=== PATIENT | male | born 1990 | race Two or more races ===

== ENCOUNTER 2019-12-05 14:24 | Emergency (ER) | payer OTHER ==
[~2019-12-05] VITALS: Ht 180.3 cm; Wt 95.0 kg
[~2019-12-05 14:24] MED LIST: CEPH-264 PO; DOCU-109 PO; HYDR-3164 PO
[2019-12-05 14:38] VITALS: BP 146/92
--- NOTE | 2019-12-05 15:38 | RAD ---
CHEST AP ONLY INDICATION: cough 19 COMPARISON STUDY: None. FINDINGS: Lungs: Normal lung volume. No focal airspace disease. Normal pulmonary vasculature. Pleura: No pleural effusion or pneumothorax. Heart and Mediastinum: Normal cardiomediastinal silhouette and great vessels. IMPRESSION: No acute cardiopulmonary process. Electronically signed by: Hawk Malagon MD (12/05/2019 3:35 PM) [id number]
--- NOTE | 2019-12-05 15:58 | PHYS DOC ---
Past Medical History Past Medical History: Asthma Past Surgical History: Tonsillectomy, Other Additional Past Surgical Histo: L wrist, colonoscopy Smoking Status: Current Every Day Smoker Alcohol Use: Occasionally Drug Use: None General Adult EDM: Chief Complaint: COUGH HPI: HPI: Patient is a 29 year old male with history of asthma, current smoker, who presents to the ED today complaining of cough that began yesterday and loss of appetite and tests that began today. Patient reports being around a friend who has COVID19. He also reports residing in a home with a family member that is currently on current time after being exposed to COVID19. Reports chills, denies fever. Review of Systems: Review of Systems: Constitutional: Denies fever or chills. [] Eyes: Denies change in visual acuity. [] HENT: Denies nasal congestion or sore throat. [] Respiratory: Denies cough or shortness of breath. [] Cardiovascular: Denies chest pain or edema. [] GI: Denies abdominal pain, nausea, vomiting, bloody stools or diarrhea. [] : Denies dysuria. [] Musculoskeletal: Denies back pain or joint pain. [] Integument: Denies rash. [] Neurologic: Denies headache, focal weakness or sensory changes. [] Psychiatric: Denies depression or anxiety. [] Heart Score: Risk Factors: Risk Factors: DM, Current or recent (<one month) smoker, HTN, HLP, family history of CAD, obesity. Risk Scores: Score 0 - 3: 2.5% MACE over next 6 weeks - Discharge Home Score 4 - 6: 20.3% MACE over next 6 weeks - Admit for Clinical Observation Score 7 - 10: 72.7% MACE over next 6 weeks - Early Invasive Strategies Allergies: Allergies: Allergies Coded Allergies Type Severity Reaction Last Updated Verified No Known Drug Allergies 12/23/15 No Physical Exam: PE: Constitutional: Well developed, well nourished, no acute distress, non-toxic appearance. [] HENT: Normocephalic, atraumatic, bilateral external ears normal, oropharynx moist, no oral exudates, nose normal. [] Eyes: PERRLA, EOMI, conjunctiva normal, no discharge. [] Neck: Normal range of motion, no tenderness, supple, no stridor. [] Cardiovascular:Heart rate regular rhythm, no murmur [] Lungs & Thorax: Bilateral breath sounds clear to auscultation [] Abdomen: Bowel sounds normal, soft, no tenderness, no masses, no pulsatile masses. [] Skin: Warm, dry, no erythema, no rash. [] Back: No tenderness, no CVA tenderness. [] Extremities: No tenderness, no cyanosis, no clubbing, ROM intact, no edema. [] Neurologic: Alert and oriented X 3, normal motor function, normal sensory function, no focal deficits noted. [] Psychologic: Affect normal, judgement normal, mood normal. [] Current Patient Data: Vital Signs: Vital Signs Date Time Temp Pulse Resp B/P (MAP) Pulse Ox O2 Delivery O2 Flow Rate FiO2 12/05/19 14:38 98.4 95 18 146/92 (110) 99 Room Air 98.4 EKG: EKG: [] Radiology/Procedures: Radiology/Procedures: []PROCEDURE: CHEST AP ONLY CHEST AP ONLY INDICATION: cough 19 COMPARISON STUDY: None. FINDINGS: Lungs: Normal lung volume. No focal airspace disease. Normal pulmonary vasculature. Pleura: No pleural effusion or pneumothorax. Heart and Mediastinum: Normal cardiomediastinal silhouette and great vessels. IMPRESSION: No acute cardiopulmonary process. Electronically signed by: Janiya Aguilar MD (12/05/2019 3:35 PM) [id number] DICTATED and SIGNED BY: JANIYA AGUILAR MD DATE: 12/05/19 1535 Course & Med Decision Making: Course & Med Decision Making Pertinent Labs and Imaging studies reviewed. (See chart for details) This is a 29-year-old male patient presenting to the ED today complaining of cough that began yesterday, patient reports losing his taste today and concern for COVID19. Chest x-ray is negative. Vitals are stable with normal O2 sats. COVID19 test obtained. Patient discharged to home and instructed to quarantine. [place] Disclaimer: Anne Disclaimer: This electronic medical record was generated, in whole or in part, using a voice recognition dictation system. Departure Departure Impression: Primary Impression: Cough Additional Impression: Person under investigation for COVID-19 Disposition: HOME, SELF-CARE Condition: STABLE Referrals: NO PCP (PCP) follow up with your doctor in one week Patient Instructions: Cough, Adult, [id number] Additional Instructions: You were tested for COVID19. We will call you as soon as the results come back. In the meantime quarantine yourself. Maintain good hand hygiene, maintain social distancing in the house. Wear a mask if social distancing is not poss ible. Come back to the ED at any point symptoms worsen. Justicifation of Admission Dx: Justifications for Admission: Justification of Admission Dx: N/A CHADD LUEVANO APRN Dec 05, 2019 15:58
--- NOTE | 2019-12-08 11:40 | NUR ---
Called and spoke to patient. Patient notified of negative COVID test results at [phone]. (Jessie Guerra RN)
== END 2019-12-05 16:03 | disposition home or self-care (01) ==
LOC: ER 14:24
DX: R05 Cough (principal); Z20.828 Contact with and (suspected) exposure to other viral communicable diseases; R63.0 Anorexia; J45.909 Unspecified asthma, uncomplicated; F17.200 Nicotine dependence, unspecified, uncomplicated; Z90.89 Acquired absence of other organs; Z98.890 Other specified postprocedural states
CPT/HCPCS: 71045; 99284; U0003